=== PATIENT | male | born 1945 | race Caucasian/White ===

== ENCOUNTER → 2018-09-09 | Outpatient (CLI) | payer OTHER ==
[~2018-09-09] VITALS: Ht 172.7 cm; Wt 108.9 kg
[~2018-09-09] MED LIST: ATOR40TA69 PO; FENO200C PO; FOLI1TAB85 PO; HYDR12.54 PO; LOSA100T20 PO; METO100T14 PO; REGADENOSON 0.4 MG/5 ML PF SYG IVP SCH
== END | disposition home or self-care (01) ==
LOC: SHCH 08:53
PROVIDERS: ATTEND Internal Medicine Cardiovascular Disease
DX: Z01.810 Encounter for preprocedural cardiovascular examination (principal)
CPT/HCPCS: 78452; 93017; 96374; A9500 ×2; J2785

== ENCOUNTER 2018-09-13 15:00 | Inpatient (IN) | payer OTHER ==
[~2018-09-13] VITALS: Ht 175.3 cm; Wt 110.7 kg
[~2018-09-13 15:00] MED LIST changes: -FENO200C PO; -FOLI1TAB85 PO; -HYDR12.54 PO; -LOSA100T20 PO; -METO100T14 PO; -REGADENOSON 0.4 MG/5 ML PF SYG IVP SCH
[2018-09-13 16:05] VITALS: BP 157/73
[2018-09-13 16:32] LABS: APPEARANCE,URINE Clear (CLEAR); BILIRUBIN,URINE Negative (NEGATIVE); COLOR,URINE Yellow (YELLOW); GLUCOSE, URINE (UA) Negative (NEGATIVE); KETONES,URINE Negative (NEGATIVE); LEUKOCYTE ESTERASE ,URINE Negative (NEGATIVE); NITRATE,URINE Negative (NEGATIVE); OCCULT BLOOD,URINE Negative (NEGATIVE); PROTEIN,URINE Negative (NEGATIVE)
[2018-09-13] MEDS ORDERED: FOLI1TAB61 PO (17:10)
[2018-09-13] MEDS ORDERED: CLOP75TA14 PO (17:10)
[2018-09-13] MEDS ORDERED: METO25TA6 PO (17:10)
[2018-09-13] MEDS ORDERED: HYDR12.530 PO (17:10)
[2018-09-13] MEDS ORDERED: LEVETIRACETAM PO (17:10)
[2018-09-13] MEDS ORDERED: DULO30CA51 PO (17:10)
[2018-09-13] MEDS ORDERED: TUMERIC PO (17:10)
[2018-09-13] MEDS ORDERED: VITAMIN D PO (17:10)
[2018-09-13] MEDS ORDERED: TRAM50TA4 PO (17:10)
[2018-09-13] MEDS ORDERED: FOLI1TAB15 PO (17:10)
[2018-09-16] VITALS (22 sets, daily range): BP systolic 135–175; BP diastolic 50–77
[2018-09-16] MEDS ORDERED: LACTATED RINGERS 1000ML 1,000 ML IV ONE (10:00)
[2018-09-16] MEDS: CEFAZOLIN 3GM /D5W 100ML 100 ML IV PRN ×2 (10:29→14:30)
[2018-09-16] MEDS ORDERED: CELECOXIB 200 MG CAP ONE (12:35)
[2018-09-16] MEDS ORDERED: KETOROLAC TROMETHAMINE 15MG/ML ONE (12:35)
[2018-09-16] MEDS ORDERED: ACETAMINOPHEN EXTRA STRENGTH 500 MG TABLET ONE (12:35)
[2018-09-16] MEDS ORDERED: OXYCODONE HCL 10 MG TAB.SR.12H PO ONE (12:36)
[2018-09-16] MEDS ORDERED: LIDOCAINE PF 2% 5ML ABBOJECT ONE (13:47)
[2018-09-16] MEDS ORDERED: NEOSTIGMINE 5MG/5ML SYR IV ONE (13:48)
[2018-09-16] MEDS ORDERED: ONDANSETRON HCL 4 MG/2 ML VIAL ONE (13:48)
[2018-09-16] MEDS ORDERED: PROPOFOL 10 MG/ML 20ML VIAL IV ONE ×2 (13:48→16:01)
[2018-09-16] MEDS ORDERED: MIDAZOLAM HCL 1 MG/ML 2ML VIAL ONE (13:48)
[2018-09-16] MEDS ORDERED: ROCURONIUM 10MG/1ML SYR 10 MG/ML ML ONE ×3 (13:48→16:03)
[2018-09-16] MEDS ORDERED: SUCCINYLCHOLINE 200MG/10ML SYR ONE (13:48)
[2018-09-16] MEDS ORDERED: GLYCOPYRROLATE 1 MG/5 ML SYRINGE ONE (13:48)
[2018-09-16] MEDS ORDERED: DEXAMETHASONE SOD PHOSPHATE 10MG/ML 1ML VIAL ONE (13:48)
[2018-09-16] MEDS ORDERED: FENTANYL CITRATE PF 50 MCG/1 ML 2ML VIAL ONE (13:49)
[2018-09-16] MEDS: TRANEXAMIC ACID 1000MG/10ML IV ONE ×2 (14:00→18:43)
[2018-09-16] MEDS ORDERED: ROPIVACAINE 0.5% 5MG/ML 30ML IJ ONE (14:06)
[2018-09-16] MEDS ORDERED: CEFAZOLIN SODIUM 1 GM VIAL ONE (14:08)
[2018-09-16] MEDS ORDERED: EPHEDRINE SULFATE 50 MG/ML AMPULE ONE (14:25)
[2018-09-16] MEDS ORDERED: POTASSIUM CHLORIDE 20 MEQ ERTAB PO PRN (18:00)
[2018-09-16] MEDS ORDERED: ONDANSETRON HCL 4 MG/2 ML VIAL IVP PRN (18:00)
[2018-09-16] MEDS ORDERED: POTASSIUM CHLORIDE 20MEQ/100ML 100 ML IV PRN (18:00)
[2018-09-16] MEDS ORDERED: POTASSIUM CHLORIDE 10% ELIXIR 20 MEQ/15 ML UDCUP PO PRN (18:00)
[2018-09-16] MEDS ORDERED: CALCIUM CARBONATE 500 MG TABLET PO PRN (18:00)
[2018-09-16] MEDS: ACETAMINOPHEN EXTRA STRENGTH 500 MG TABLET PO SCH (18:00)
[2018-09-16] MEDS ORDERED: DiphenhydrAMINE HCL 50 MG/ML VIAL IVP PRN (18:00)
[2018-09-16] MEDS ORDERED: LIDOCAINE HCL-MPF 1% 2ML VIAL IVP PRN (18:00)
[2018-09-16] MEDS ORDERED: FERROUS FUMARATE 324 MG TABLET PO PRN (18:00)
[2018-09-16] MEDS ORDERED: OXYCODONE HCL 5 MG TAB PO PRN (18:00)
[2018-09-16] MEDS ORDERED: TRAMADOL HCL 50 MG TABLET PO PRN ×2 (18:00→19:45)
[2018-09-16] MEDS ORDERED: MEPERIDINE-PF 25 MG/ML SYG ONE ×2 (18:40→18:49)
[2018-09-16] MEDS: SODIUM CHLORIDE 0.9% 1000ML 1,000 ML IV SCH (19:36)
[2018-09-16] MEDS: OXYCODONE HCL 5 MG TAB PO PRN ×2 (19:42→23:31)
[2018-09-16] MEDS: KETOROLAC TROMETHAMINE 15MG/ML IV PRN (21:00)
[2018-09-16] MEDS: CLOPIDOGREL BISULFATE 75 MG TAB PO SCH (21:02)
[2018-09-16] MEDS: CELECOXIB 200 MG CAP PO SCH (21:02)
[2018-09-16] MEDS: LEVETIRACETAM 250 MG TABLET PO SCH (21:02)
[2018-09-16] MEDS: DULOXETINE HCL 30 MG CAP PO SCH (21:02)
[2018-09-16] MEDS: PREGABALIN 25 MG CAP PO SCH (21:02)
[2018-09-16] MEDS: METOPROLOL TARTRATE 25 MG TAB PO SCH (21:02)
[2018-09-16] MEDS: CEFAZOLIN 3GM /D5W 100ML 100 ML IV SCH (23:30)
[2018-09-17] VITALS: BP 144/65
[2018-09-17] MEDS: ACETAMINOPHEN EXTRA STRENGTH 500 MG TABLET PO SCH ×3 (01:41→19:46)
[2018-09-17] MEDS: OXYCODONE HCL 5 MG TAB PO PRN ×3 (03:42→19:51)
[2018-09-17] MEDS: SODIUM CHLORIDE 0.9% 1000ML 1,000 ML IV SCH ×2 (03:43→15:04)
[2018-09-17 04:24] VITALS: BP 142/60
[2018-09-17 04:42] LABS: HEMATOCRIT 29.9 % (42-54); MEAN CORPUSCULAR HEMOGLOBIN 29.4 pg (27.0-33.0); MEAN CORPUSCULAR HGB CONC 33.3 g/dL (32.0-36.0); MEAN CORPUSCULAR VOLUME 88.3 fL (79-99); PLATELET COUNT (AUTO) 200 K/uL (130-400); RED BLOOD CELL COUNT(AUTO) 3.38 MIL/uL (4.50-6.20); RED CELL DISTRIBUTION WIDTH 14.6 % (11.0-15.5); WHITE BLOOD COUNT (AUTO) 8.9 K/uL (4.8-10.8)
[2018-09-17 04:44] LABS: CREATININE 1.7 mg/dL (0.5-1.5)
[2018-09-17] MEDS: CEFAZOLIN 3GM /D5W 100ML 100 ML IV SCH (05:54)
[2018-09-17] MEDS: KETOROLAC TROMETHAMINE 15MG/ML IV PRN ×2 (06:50→15:05)
[2018-09-17 08:33] VITALS: BP 124/64
[2018-09-17] MEDS: TAMSULOSIN HCL 0.4 MG CAP.ER.24H PO SCH (08:55)
[2018-09-17] MEDS: FOLIC ACID/VITAMIN B COMP W-C 1 MG CAPSULE PO SCH (08:55)
[2018-09-17] MEDS: LEVETIRACETAM 250 MG TABLET PO SCH ×2 (08:55→19:46)
[2018-09-17] MEDS: ATORVASTATIN CALCIUM 10 MG TABLET PO SCH (08:55)
[2018-09-17] MEDS: FOLIC ACID 1 MG TABLET PO SCH (08:56)
[2018-09-17] MEDS: DULOXETINE HCL 30 MG CAP PO SCH ×2 (08:56→19:46)
[2018-09-17] MEDS: METOPROLOL TARTRATE 25 MG TAB PO SCH ×2 (08:56→19:46)
[2018-09-17] MEDS: PREGABALIN 25 MG CAP PO SCH ×2 (08:56→19:46)
[2018-09-17] MEDS: CELECOXIB 200 MG CAP PO SCH ×2 (08:56→19:46)
[2018-09-17] MEDS: FAMOTIDINE 20MG TAB 20 MG TAB PO SCH (08:57)
[2018-09-17] MEDS: HYDROCHLOROTHIAZIDE 25 MG TABLET PO SCH (08:57)
[2018-09-17] MEDS: POLYETHYLENE GLYCOL 3350 17 GM POWD.PACK PO SCH (08:57)
[2018-09-17] MEDS: TUMERIC 500 MG PO SCH (09:00)
[2018-09-17] MEDS: VITAMIN D PO SCH (09:00)
[2018-09-17] MEDS: ASPIRIN 325 MG TABLET PO SCH (09:45)
[2018-09-17 11:28] VITALS: BP 117/53
[2018-09-17 16:46] VITALS: BP 96/44
[2018-09-17] MEDS: CLOPIDOGREL BISULFATE 75 MG TAB PO SCH (19:46)
[2018-09-17 20:16] VITALS: BP 114/50
[2018-09-18] MEDS: OXYCODONE HCL 5 MG TAB PO PRN ×3 (00:06→18:43)
[2018-09-18 00:20] VITALS: BP 111/57
[2018-09-18] MEDS: ACETAMINOPHEN EXTRA STRENGTH 500 MG TABLET PO SCH ×3 (01:53→18:00)
[2018-09-18 04:20] VITALS: BP 107/51
[2018-09-18] MEDS: KETOROLAC TROMETHAMINE 15MG/ML IV PRN (06:49)
[2018-09-18 07:57] VITALS: BP 113/59
[2018-09-18] MEDS: POLYETHYLENE GLYCOL 3350 17 GM POWD.PACK PO SCH (08:50)
[2018-09-18] MEDS: PREGABALIN 25 MG CAP PO SCH (08:51)
[2018-09-18] MEDS: ATORVASTATIN CALCIUM 10 MG TABLET PO SCH (08:58)
[2018-09-18] MEDS: FAMOTIDINE 20MG TAB 20 MG TAB PO SCH (08:59)
[2018-09-18] MEDS: TAMSULOSIN HCL 0.4 MG CAP.ER.24H PO SCH (08:59)
[2018-09-18] MEDS: HYDROCHLOROTHIAZIDE 25 MG TABLET PO SCH (08:59)
[2018-09-18] MEDS: FOLIC ACID/VITAMIN B COMP W-C 1 MG CAPSULE PO SCH (08:59)
[2018-09-18] MEDS: ASPIRIN 325 MG TABLET PO SCH (08:59)
[2018-09-18] MEDS: LEVETIRACETAM 250 MG TABLET PO SCH (08:59)
[2018-09-18] MEDS: METOPROLOL TARTRATE 25 MG TAB PO SCH (09:00)
[2018-09-18] MEDS: CELECOXIB 200 MG CAP PO SCH (09:00)
[2018-09-18] MEDS: FOLIC ACID 1 MG TABLET PO SCH (09:00)
[2018-09-18] MEDS: VITAMIN D PO SCH (09:00)
[2018-09-18] MEDS: TUMERIC 500 MG PO SCH (09:00)
[2018-09-18] MEDS: DULOXETINE HCL 30 MG CAP PO SCH (09:00)
[2018-09-18] MEDS ORDERED: HYDR-4457 PO (10:54)
[2018-09-18] MEDS ORDERED: ASPI-1012 PO (10:54)
[2018-09-18 12:02] VITALS: BP 129/57
[2018-09-19] MEDS ORDERED: BISACODYL 10 MG SUPP.RECT RC PRN (18:00)
== END 2018-09-18 19:15 | DRG 470 ==
LOC: DAHIP 09-16 09:11 → 4BH 09-16 18:45
PROVIDERS: ADMIT Orthopaedic Surgery; ATTEND Orthopaedic Surgery
PROC: 0SR90JZ Replacement of Right Hip Joint with Synthetic Substitute, Open Approach (ICD-10-PCS; principal; 2018-09-16 13:50)
DX: M16.11 Unilateral primary osteoarthritis, right hip (principal); E78.00 Pure hypercholesterolemia, unspecified; I13.10 Hypertensive heart and chronic kidney disease without heart failure, with stage 1 through stage 4 chronic kidney disease, or unspecified chronic kidney disease; N18.9 Chronic kidney disease, unspecified; G89.29 Other chronic pain; Z79.02 Long term (current) use of antithrombotics/antiplatelets; Z79.899 Other long term (current) drug therapy; Z86.73 Personal history of transient ischemic attack (TIA), and cerebral infarction without residual deficits; Z90.49 Acquired absence of other specified parts of digestive tract; Z90.89 Acquired absence of other organs; Z82.49 Family history of ischemic heart disease and other diseases of the circulatory system
CPT/HCPCS: 36415; 73503; 80048; 81003; 85027; 88304; 88311; 96374; 97039; C1776; J0330; J0690; J1100; J1885; J2001; J2175; J2250; J2405; J2704; J2710; J2795; J3010; J3490; J7120

== ENCOUNTER → 2019-02-19 | Outpatient (CLI) | payer OTHER ==
[~2019-02-19] MED LIST changes: +ASPI-1012 PO; +CLOP75TA14 PO; +DULO30CA51 PO; +FOLI1TAB15 PO; +FOLI1TAB61 PO; +HYDR-4457 PO; +HYDR12.530 PO; +LEVETIRACETAM PO; +METO25TA6 PO; +TRAM50TA4 PO; +VITAMIN D PO
== END | disposition home or self-care (01) ==
LOC: SLP 20:09
PROVIDERS: ATTEND Family Medicine
DX: G47.33 Obstructive sleep apnea (adult) (pediatric) (principal)
CPT/HCPCS: 95811

== ENCOUNTER → 2019-06-02 | Outpatient (CLI) | payer OTHER ==
[~2019-06-02] MED LIST changes: -DULO30CA51 PO; +DULO30CA52 PO
== END | disposition home or self-care (01) ==
LOC: SHCH 11:16
PROVIDERS: ATTEND Internal Medicine Cardiovascular Disease
DX: I73.9 Peripheral vascular disease, unspecified (principal)
CPT/HCPCS: 93925

== ENCOUNTER 2019-06-20 05:28 | Day surgery (SDC) | payer OTHER ==
[~2019-06-20] VITALS: Ht 172.7 cm; Wt 108.9 kg
[2019-06-20] VITALS (7 sets, daily range): BP systolic 62–152; BP diastolic 20–66
[2019-06-20] MEDS ORDERED: SODIUM CHLORIDE 0.9% 1000ML 1,000 ML IV ONE (05:41)
[2019-06-20] MEDS ORDERED: PROPOFOL 10 MG/ML 20ML VIAL IV ONE (06:33)
[2019-06-20] MEDS ORDERED: LIDOCAINE HCL 1% 20 ML VIAL ONE (06:33)
--- NOTE | 2019-06-20 08:49 | NUR ---
VITALS THAT WERE ENTERED AND THEN REMOVED WERE CORRECT. VITALS WERE FOR CORRECT PATIENT AND TIME
== END 2019-06-20 08:29 | disposition home or self-care (01) ==
LOC: DAH 05:28
PROVIDERS: ATTEND Internal Medicine
DX: K51.40 Inflammatory polyps of colon without complications (principal); D50.9 Iron deficiency anemia, unspecified; K57.30 Diverticulosis of large intestine without perforation or abscess without bleeding; K63.89 Other specified diseases of intestine; E78.5 Hyperlipidemia, unspecified; I67.89 Other cerebrovascular disease; I12.0 Hypertensive chronic kidney disease with stage 5 chronic kidney disease or end stage renal disease; N18.6 End stage renal disease; Z86.010 Personal history of colon polyps; Z79.899 Other long term (current) drug therapy; Z79.82 Long term (current) use of aspirin; Z96.651 Presence of right artificial knee joint; Z90.49 Acquired absence of other specified parts of digestive tract; Z98.890 Other specified postprocedural states; Z99.2 Dependence on renal dialysis
CPT/HCPCS: 45380; 88305; A4606; J2704; J7030

== ENCOUNTER 2021-08-01 08:03 | Observation (INO) | payer OTHER ==
[2021-07-29 10:19] LABS: APPEARANCE,URINE Clear (CLEAR); BILIRUBIN,URINE Small (NEGATIVE); COLOR,URINE Dark Yellow (YELLOW); GLUCOSE, URINE (UA) Negative (NEGATIVE); KETONES,URINE Trace mg/dL (NEGATIVE); LEUKOCYTE ESTERASE ,URINE Negative (NEGATIVE); NITRATE,URINE Negative (NEGATIVE); OCCULT BLOOD,URINE Negative (NEGATIVE); PH,URINE 5.5 (5.0-8.0); PROTEIN,URINE POS 1+ mg/dL (NEGATIVE)
[2021-07-29 10:23] LABS: CREATININE 1.6 mg/dL (0.5-1.5); POTASSIUM 4.3 mmol/L (3.5-5.1)
[2021-07-29 10:52] LABS: BACTERIA,URINE None Seen /HPF (None Seen); HYALINE CASTS, URINE 0-1 /LPF (0-1 /LPF); MUCUS,URINE Few LPF (None Seen); RBC,URINE None Seen /HPF (0-1); WBC,URINE 0-1 /HPF (0-1)
[2021-07-29 16:00] VITALS: BP 162/93
[~2021-08-01] VITALS: Ht 175.3 cm; Wt 125.9 kg
[2021-08-01] VITALS (22 sets, daily range): BP systolic 145–193; BP diastolic 57–98
[2021-08-01] MEDS ORDERED: LACTATED RINGERS 1000ML 1,000 ML IV ONE (10:00)
[2021-08-01] MEDS: CEFAZOLIN SODIUM 1 GM VIAL ONE ×2 (11:05→12:45)
[2021-08-01] MEDS ORDERED: CEFAZOLIN SODIUM 1 GM VIAL ONE (12:30)
[2021-08-01] MEDS ORDERED: MIDAZOLAM HCL 1 MG/ML 2ML VIAL ONE (12:31)
[2021-08-01] MEDS ORDERED: ROCURONIUM 10MG/1ML SYR 10 MG/ML ML ONE ×2 (12:31→13:31)
[2021-08-01] MEDS ORDERED: LIDOCAINE HCL-MPF 1% 5ML AMP IJ ONE (12:31)
[2021-08-01] MEDS ORDERED: PROPOFOL 10 MG/ML 20ML VIAL IV ONE (12:31)
[2021-08-01] MEDS ORDERED: FENTANYL CITRATE PF 50 MCG/1 ML 2ML VIAL ONE ×2 (12:31→13:33)
[2021-08-01] MEDS ORDERED: SUCCINYLCHOLINE CHLORIDE 20 MG/ML 10 ML VIAL ONE (12:31)
[2021-08-01] MEDS ORDERED: CALCIUM CARB 500MG PO PRN (15:00)
[2021-08-01] MEDS ORDERED: TRAMADOL HCL 50 MG TABLET PO PRN ×2 (15:00→17:00)
[2021-08-01] MEDS ORDERED: OXYCODONE HCL 5 MG TAB PO PRN (15:00)
[2021-08-01] MEDS: ACETAMINOPHEN 500 MG TABLET PO SCH ×2 (15:00→23:00)
[2021-08-01] MEDS ORDERED: ONDANSETRON 4MG INJ IVP PRN (15:00)
[2021-08-01] MEDS ORDERED: FERROUS FUMARATE 324 MG TABLET PO PRN (15:00)
[2021-08-01] MEDS ORDERED: POTASSIUM CHLORIDE 20MEQ/100ML 100 ML IV PRN (15:00)
[2021-08-01] MEDS ORDERED: TEMAZEPAM 15 MG CAPSULE PO PRN (15:00)
[2021-08-01] MEDS ORDERED: KCL 20 MEQ ERTAB PO PRN (15:00)
[2021-08-01] MEDS ORDERED: POTASSIUM CHLORIDE 10% ELIXIR 20 MEQ/15 ML UDCUP PO PRN (15:00)
[2021-08-01] MEDS: 0.9%NACL 1000ML 1,000 ML IV SCH (15:00)
[2021-08-01] MEDS ORDERED: DiphenhydrAMINE HCL 50 MG/ML VIAL IVP PRN (15:00)
[2021-08-01] MEDS ORDERED: LIDOCAINE HCL-MPF 1% 2ML VIAL IV PRN (15:00)
[2021-08-01] MEDS ORDERED: NEOSTIGMINE 5MG/5ML SYR IV ONE (15:07)
[2021-08-01] MEDS ORDERED: GLYCOPYRROLATE 1 MG/5 ML SYRINGE ONE (15:07)
[2021-08-01] MEDS ORDERED: MEPERIDINE-PF 25 MG/ML SYG ONE ×2 (15:31→15:47)
[2021-08-01] MEDS ORDERED: AMLO-257 PO (16:51)
[2021-08-01] MEDS ORDERED: ARIP2TAB20 PO (16:51)
[2021-08-01] MEDS ORDERED: METOPROLOL TARTRATE 25 MG TAB ONE (17:14)
[2021-08-01] MEDS ORDERED: HYDROCHLOROTHIAZIDE 25 MG TABLET ONE (17:14)
[2021-08-01] MEDS ORDERED: AMLODIPINE 5 MG TAB ONE (17:14)
[2021-08-01] MEDS: AMLODIPINE 5 MG TAB PO SCH (17:15)
[2021-08-01] MEDS: METOPROLOL TARTRATE 25 MG TAB PO SCH (17:15)
[2021-08-01] MEDS: OXYCODONE HCL 5 MG TAB PO PRN (18:35)
[2021-08-01] MEDS ORDERED: LEVE750T4 PO (20:20)
[2021-08-01] MEDS: DULOXETINE HCL 30 MG CAP PO SCH (20:38)
[2021-08-01] MEDS: CELECOXIB 200 MG CAP PO SCH (20:38)
[2021-08-01] MEDS: LEVETIRACETAM 250 MG TABLET PO SCH (20:38)
[2021-08-01] MEDS: CLOPIDOGREL 75MG TAB PO SCH (20:39)
[2021-08-01] MEDS: ASPIRIN 81MG CHEW TAB PO SCH (20:39)
[2021-08-01] MEDS: HYDROMORPHONE 1 MG INJ IVP PRN ×2 (20:43→20:48)
[2021-08-01] MEDS: CEFAZOLIN 3GM /D5W 100ML 100 ML IV SCH (21:07)
[2021-08-02] MEDS: 0.9%NACL 1000ML 1,000 ML IV SCH ×2 (01:00→11:00)
[2021-08-02] MEDS: HYDROMORPHONE 1 MG INJ IVP PRN ×2 (02:25→09:35)
[2021-08-02 03:41] VITALS: BP 142/62
[2021-08-02] MEDS: CEFAZOLIN 3GM /D5W 100ML 100 ML IV SCH (04:00)
[2021-08-02 05:28] LABS: HEMATOCRIT 36.7 % (42-54); MEAN CORPUSCULAR HEMOGLOBIN 33.4 pg (27.0-33.0); MEAN CORPUSCULAR HGB CONC 33.8 g/dL (32.0-36.0); MEAN CORPUSCULAR VOLUME 98.9 fL (79-99); RED BLOOD CELL COUNT(AUTO) 3.71 MIL/uL (4.50-6.20); RED CELL DISTRIBUTION WIDTH 13.8 % (11.0-15.5); WHITE BLOOD COUNT (AUTO) 11.1 K/uL (4.8-10.8)
[2021-08-02 05:47] LABS: CREATININE 1.7 mg/dL (0.5-1.5); POTASSIUM 4.5 mmol/L (3.5-5.1)
[2021-08-02] MEDS: ACETAMINOPHEN 500 MG TABLET PO SCH ×3 (07:00→21:00)
[2021-08-02 07:22] VITALS: BP 137/57
[2021-08-02] MEDS: ARIPIPRAZOLE 2 MG PO SCH (09:00)
[2021-08-02] MEDS: TAMSULOSIN HCL 0.4 MG CAP.ER.24H PO SCH (09:26)
[2021-08-02] MEDS: DULOXETINE HCL 30 MG CAP PO SCH ×2 (09:26→21:00)
[2021-08-02] MEDS: ASPIRIN 81MG CHEW TAB PO SCH ×2 (09:26→21:01)
[2021-08-02] MEDS: POLYETHYLENE GLYCOL 3350 17 GM POWD.PACK PO SCH (09:26)
[2021-08-02] MEDS: LEVETIRACETAM 250 MG TABLET PO SCH ×2 (09:26→20:59)
[2021-08-02] MEDS: CELECOXIB 200 MG CAP PO SCH ×2 (09:26→21:00)
[2021-08-02] MEDS: Vitamin B Complex/Vit C/Folic Acid PO SCH (09:26)
[2021-08-02] MEDS: FOLIC ACID 1 MG TABLET PO SCH (09:26)
[2021-08-02] MEDS: HYDROCHLOROTHIAZIDE 25 MG TABLET PO SCH (09:27)
[2021-08-02] MEDS: AMLODIPINE 5 MG TAB PO SCH (09:27)
[2021-08-02] MEDS: METOPROLOL TARTRATE 25 MG TAB PO SCH ×2 (09:27→20:59)
[2021-08-02] MEDS: ATORVASTATIN 40 MG TABLET PO SCH (09:28)
[2021-08-02 11:59] VITALS: BP 145/90
[2021-08-02 15:27] VITALS: BP 115/58
[2021-08-02 20:00] VITALS: BP 144/64
[2021-08-02] MEDS: CLOPIDOGREL 75MG TAB PO SCH (21:00)
[2021-08-03] VITALS: BP 115/79
[2021-08-03 04:00] VITALS: BP 128/71
[2021-08-03 08:00] VITALS: BP 129/61
[2021-08-03] MEDS: POLYETHYLENE GLYCOL 3350 17 GM POWD.PACK PO SCH (08:41)
[2021-08-03] MEDS: ATORVASTATIN 40 MG TABLET PO SCH (08:42)
[2021-08-03] MEDS: ASPIRIN 81MG CHEW TAB PO SCH (08:42)
[2021-08-03] MEDS: HYDROCHLOROTHIAZIDE 25 MG TABLET PO SCH (08:42)
[2021-08-03] MEDS: FOLIC ACID 1 MG TABLET PO SCH (08:43)
[2021-08-03] MEDS: OXYCODONE HCL 5 MG TAB PO PRN ×2 (08:43→13:15)
[2021-08-03] MEDS: LEVETIRACETAM 250 MG TABLET PO SCH (08:44)
[2021-08-03] MEDS: DULOXETINE HCL 30 MG CAP PO SCH (08:44)
[2021-08-03] MEDS: TAMSULOSIN HCL 0.4 MG CAP.ER.24H PO SCH (08:44)
[2021-08-03] MEDS: Vitamin B Complex/Vit C/Folic Acid PO SCH (08:44)
[2021-08-03] MEDS: AMLODIPINE 5 MG TAB PO SCH (08:44)
[2021-08-03] MEDS: METOPROLOL TARTRATE 25 MG TAB PO SCH (08:44)
[2021-08-03] MEDS: CELECOXIB 200 MG CAP PO SCH (08:44)
[2021-08-03] MEDS: ACETAMINOPHEN 500 MG TABLET PO SCH ×2 (08:47→15:55)
[2021-08-03] MEDS: ARIPIPRAZOLE 2 MG PO SCH (09:00)
[2021-08-03 12:00] VITALS: BP 126/60
[2021-08-03 16:00] VITALS: BP 107/51
[2021-08-03] MEDS ORDERED: ASPI-1005 PO (16:18)
[2021-08-04] MEDS ORDERED: BISACODYL 10 MG SUPP.RECT RC PRN (15:00)
== END 2021-08-03 19:17 ==
LOC: DAH 08:03 → DAHIP 08:04 → DAH 08:04 → 3BH 16:29
PROVIDERS: ADMIT Orthopaedic Surgery; ATTEND Orthopaedic Surgery
DX: M17.12 Unilateral primary osteoarthritis, left knee (principal); Z20.822 Contact with and (suspected) exposure to COVID-19; M23.8X2 Other internal derangements of left knee; I11.9 Hypertensive heart disease without heart failure; E78.00 Pure hypercholesterolemia, unspecified; R56.9 Unspecified convulsions; M96.811 Intraoperative hemorrhage and hematoma of a musculoskeletal structure complicating other procedure; D62 Acute posthemorrhagic anemia; E66.09 Other obesity due to excess calories; R11.2 Nausea with vomiting, unspecified; Z68.41 Body mass index [BMI] 40.0-44.9, adult; Z86.61 Personal history of infections of the central nervous system; Z98.890 Other specified postprocedural states; Z79.899 Other long term (current) drug therapy; Z90.49 Acquired absence of other specified parts of digestive tract
CPT/HCPCS: 27447; 36415 ×2; 80048 ×2; 81001; 85027; 87088; 87635; 87641; 88305; 88311; 93005; 96361 ×2; 96365; 96366 ×2; 96375; 96376; 97039 ×3; 97116 ×4; 97161; 97530 ×3; A4215; A4221; A4222; A4223; A4649 ×3; A4663; A4930 ×2; A5120; A9272; C1776; C9803; G0378 ×50; J0330; J0690 ×3; J1170 ×3; J2175 ×2; J2250; J2704; J2710; J3010 ×2; J3490 ×2; J7120 ×2